=== PATIENT | female | born 1990 | race African-American/Black ===

== ENCOUNTER 2017-01-04 12:29 | Inpatient (IN) | payer BC ==
[~2017-01-04] VITALS: Ht 157.5 cm; Wt 92.5 kg
--- NOTE | ~2017-01-04 | EKG ---
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 : 1990 Requested By: Lenny Bianchi Order Number: [id number] MD: Salazar Tanner Measurements Intervals [place] Rate: 70 P: 36 [place]: 175 QRS: 7 QRSD: 99 T: -2 QT: 410 QTc: 443 Interpretive Statements Sinus rhythm Probable left ventricular hypertrophy Compared to ECG 08/16/2015 19:33:27 Prolonged QT interval no longer present Electronically Signed On 01-06-2017 13:14:13 CDT by Salazar Tanner [email or web address] <ELECTRONICALLY SIGNED> By: Salazar Tanner MD, [facility] 01/06/17 1314 1308 1308 Salazar Tanner MD, [facility] /EPI
[~2017-01-04 12:29] MED LIST: ALDOMET250 MG PO; AMLODIPINE BESY10 MG PO; COLACE 100 MG100 MG PO; FLAGYL500 MG PO; HYDRALAZINE 2525 MG PO; HYDROCODONE-AP1 EAC6 PO; IBUPROFEN 600600 M1 PO; K-DUR 20 MEQ T20 MEQ PO; KEFLEX500 MG PO; KLOR-CON 1010 MEQ PO; LISINOPRIL20 MG PO; MACROBID 100 M100 M1 PO; NOHOMEMEDICATIONS; NORCO 5-325 TA1 EACH PO; PENICILLIN VK500 M1 PO; PHENERGAN 25 MG25 M1 PO; PHENERGAN12.5 M2 RECTAL; POTASSIUM20 PO; PROMS25 WY RECTAL; PYRIDOXINE HCL25 MG PO; SLOW-MAG64 MG PO; TESSALON PERLE100 MG PO; TRANDATE 200 M200 M1 PO; TRANDATE 200 M200 MG PO; TRINATE TABLET1 TAB PO; ULTRA SLEEP25 MG PO; VALIUM5 MG PO; ZOFRAN ODT4 MG PO
[2017-01-04 12:30] VITALS: BP 209/138
[2017-01-04] MEDS ORDERED: PROCARDIA XL30 MG PO (12:54)
[2017-01-04 13:13] LABS: BASOPHILS 0.7 % (0.0-2.0); EOSINOPHILS 1.3 % (0.0-3.0); HEMATOCRIT 38.5 % (37.0-47.0); HEMOGLOBIN 12.6 gm/dL (12.0-15.0); LYMPHOCYTES 23.1 % (24.0-44.0); MCH 26.3 pg (26.0-34.0); MCHC 32.6 g/dL (28.0-37.0); MCV 80.7 fL (80.0-100.0); MONOCYTES 7.2 % (1.0-8.0); PLATELET COUNT 284 thou/uL (150-400); POLYS 67.7 % (36.0-66.0); RBC 4.78 mil/uL (4.20-5.00); WBC 7.4 thou/uL (4.0-11.0)
[2017-01-04 13:20] LABS: MANUAL DIFF NO
[2017-01-04 13:42] LABS: ANION GAP 7 mmol/L (7-16); BUN 17 mg/dL (7-18); CALCIUM 8.8 mg/dL (8.5-10.1); CHLORIDE 101 mmol/L (98-107); CO2 33 mmol/L (21-32); CREATININE 0.8 mg/dL (0.6-1.0); GLUCOSE 109 mg/dL (74-106); SODIUM 141 mmol/L (136-145); TROPONIN-I < 0.04 ng/mL (<0.04-0.07)
[2017-01-04 13:44] LABS: POTASSIUM 2.1 mmol/L (3.5-5.1)
[2017-01-04 16:08] VITALS: BP 154/68
[2017-01-04 20:00] VITALS: BP 163/61; BP 163/91
[2017-01-05 04:00] VITALS: BP 170/103
[2017-01-05 05:22] LABS: CALCIUM 8.3 mg/dL (8.5-10.1); CREATININE 0.8 mg/dL (0.6-1.0); MAGNESIUM 1.8 mg/dL (1.8-2.4)
[2017-01-05 05:24] LABS: HEMATOCRIT 35.7 % (37.0-47.0); HEMOGLOBIN 11.8 gm/dL (12.0-15.0); MCH 26.9 pg (26.0-34.0); MCHC 33.2 g/dL (28.0-37.0); MCV 81.3 fL (80.0-100.0); RBC 4.4 mil/uL (4.20-5.00); RDW 16.3 % (10.5-14.5); WBC 10.4 thou/uL (4.0-11.0)
[2017-01-05 05:25] LABS: POTASSIUM 2.2 mmol/L (3.5-5.1)
[2017-01-05 08:28] VITALS: BP 171/101
[2017-01-05 16:00] VITALS: BP 138/85
[2017-01-05 20:00] VITALS: BP 157/99
[2017-01-06 04:53] LABS: CALCIUM 8.2 mg/dL (8.5-10.1); CREATININE 0.8 mg/dL (0.6-1.0)
[2017-01-06 05:00] VITALS: BP 166/102
[2017-01-06 05:11] LABS: POTASSIUM 2.6 mmol/L (3.5-5.1)
[2017-01-06 08:00] VITALS: BP 156/110
[2017-01-06 11:30] LABS: URINE BILIRUBIN NEGATIVE (Negative); URINE BLOOD 3+ (Negative); URINE GLUCOSE-RANDOM* NEGATIVE (Negative); URINE KETONES NEGATIVE (Negative); URINE NITRITE NEGATIVE (Negative); URINE PROTEIN (DIPSTICK) NEGATIVE (Negative); URINE SPECIFIC GRAVITY 1.015 (1.003-1.035); URINE UROBILINOGEN 0.2 E.U./dl (0.2-1.0)
[2017-01-06 11:33] LABS: URINE COLOR PINK
[2017-01-06 11:37] LABS: BACTERIA 1-9 Few /HPF (None Seen); CASTS None Seen /LPF (None Seen); CRYSTALS None Seen /LPF (None Seen); SQUAMOUS 0-3 Few /LPF (0-3); URINE RBC >20 Many /HPF (0-2); URINE WBC 0-5 Rare /HPF (0-5)
[2017-01-06 16:00] VITALS: BP 140/82
[2017-01-06 19:10] VITALS: BP 173/103
[2017-01-07 00:48] LABS: ALBUMIN 2.9 g/dL (3.4-5.0); CALCIUM 8.4 mg/dL (8.5-10.1); CREATININE 1.1 mg/dL (0.6-1.0); PHOSPHORUS 3.7 mg/dL (2.5-4.9); POTASSIUM 3.2 mmol/L (3.5-5.1)
[2017-01-07 02:03] VITALS: BP 161/103
[2017-01-07 05:14] VITALS: BP 152/94
[2017-01-07 08:48] VITALS: BP 154/104
[2017-01-07 16:00] VITALS: BP 149/97
[2017-01-07 19:18] VITALS: BP 142/91
[2017-01-08 07:16] LABS: HEMATOCRIT 36.1 % (37.0-47.0); HEMOGLOBIN 11.9 gm/dL (12.0-15.0); MCV 81.7 fL (80.0-100.0); RBC 4.42 mil/uL (4.20-5.00); RDW 16.4 % (10.5-14.5); WBC 8.5 thou/uL (4.0-11.0)
[2017-01-08 08:26] VITALS: BP 172/108
[2017-01-08 08:35] LABS: CALCIUM 8.7 mg/dL (8.5-10.1); CREATININE 0.8 mg/dL (0.6-1.0); PHOSPHORUS 3.9 mg/dL (2.5-4.9); POTASSIUM 3.3 mmol/L (3.5-5.1)
[2017-01-08] MEDS ORDERED: LISINOPRIL20 MG PO (10:24)
[2017-01-08] MEDS ORDERED: ALDACTONE25 MG PO (10:25)
[2017-01-08 10:40] VITALS: BP 172/108
[2017-01-08 11:00] VITALS: BP 166/97
== END 2017-01-08 11:47 | disposition home or self-care (01) | DRG 641 ==
LOC: ER 12:29 → EROBS 15:34 → 4S 15:34
PROVIDERS: Hospitalist; Physician Assistant
DX: E87.6 Hypokalemia (principal); I16.9 Hypertensive crisis, unspecified; E26.9 Hyperaldosteronism, unspecified; E87.3 Alkalosis; R51 Headache; Z79.899 Other long term (current) drug therapy; Z82.49 Family history of ischemic heart disease and other diseases of the circulatory system; Z87.81 Personal history of (healed) traumatic fracture
CPT/HCPCS: 10100

== ENCOUNTER 2017-09-29 00:42 | Emergency (ER) | payer BC ==
[~2017-09-29] VITALS: Ht 157.5 cm; Wt 147.4 kg
--- NOTE | ~2017-09-29 | EKG ---
[address] [address] ELECTROCARDIOGRAM REPORT Name: LUIS SINGLETON [facility] Room #: [facility]#: [id number] Admission: 09/29/17 Attend Phys: Discharge: 09/29/17 Date of : [birth year] Report #: [id number] THIS REPORT FOR: //name// 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
[~2017-09-29 00:42] MED LIST changes: +ALDACTONE25 MG PO; +PROCARDIA XL30 MG PO
[2017-09-29 01:16] LABS: ABSOLUTE NEUTROPHILS 5.3 thou/uL (1.4-8.2); BASOPHILS 0.5 % (0.0-2.0); EOSINOPHILS 1.1 % (0.0-3.0); HEMATOCRIT 36.7 % (37.0-47.0); HEMOGLOBIN 12.4 gm/dL (12.0-15.0); MCH 27.4 pg (26.0-34.0); MCHC 33.7 g/dL (28.0-37.0); MCV 81.1 fL (80.0-100.0); MONOCYTES 8.5 % (1.0-8.0); PLATELET COUNT 243 thou/uL (150-400); POLYS 64.9 % (36.0-66.0); RBC 4.53 mil/uL (4.20-5.00); RDW 15.5 % (10.5-14.5); WBC 8.2 thou/uL (4.0-11.0)
[2017-09-29 01:26] LABS: ANION GAP 7 mmol/L (7-16); BUN 18 mg/dL (7-18); CALCIUM 9.1 mg/dL (8.5-10.1); CHLORIDE 102 mmol/L (98-107); CO2 30 mmol/L (21-32); CREATININE 0.9 mg/dL (0.6-1.0); GLUCOSE 108 mg/dL (74-106); SODIUM 139 mmol/L (136-145)
[2017-09-29 01:29] LABS: POTASSIUM 2.1 mmol/L (3.5-5.1)
[2017-09-29 01:34] LABS: MAGNESIUM 1.7 mg/dL (1.8-2.4); SGOT 24 U/L (15-37); SGPT 30 U/L (30-65); TOTAL BILIRUBIN 0.5 mg/dL (<0.1-1.0); TOTAL PROTEIN 7.6 g/dL (6.4-8.2); TROPONIN-I < 0.04 ng/mL (<0.06)
[2017-09-29] MEDS ORDERED: LISINOPRIL20 MG PO (03:00)
[2017-09-29] MEDS ORDERED: PROCARDIA XL30 MG PO (03:00)
[2017-09-29] MEDS ORDERED: ALDACTONE50 MG PO (03:00)
[2017-09-29] MEDS ORDERED: POTASSIUM20 PO (03:06)
== END 2017-09-29 04:06 | disposition home or self-care (01) ==
LOC: ER 00:42
PROVIDERS: Emergency Medicine
DX: R51 Headache (principal); E87.6 Hypokalemia; I10 Essential (primary) hypertension; E83.42 Hypomagnesemia; Z91.14 Patient's other noncompliance with medication regimen

== ENCOUNTER → 2017-10-21 | Outpatient (CLI) | payer BC ==
[~2017-10-21] MED LIST changes: +ALDACTONE50 MG PO
== END ==
LOC: RAD 12:28
DX: M79.605 Pain in left leg (principal)

== ENCOUNTER 2018-05-02 01:33 | Emergency (ER) | payer BC ==
[~2018-05-02] VITALS: Ht 157.5 cm; Wt 111.6 kg
[2018-05-02] MEDS ORDERED: LABETALOL HCL100 MG PO (01:45)
[2018-05-02] MEDS ORDERED: MOBIC15 MG PO (04:31)
[2018-05-02 04:42] VITALS: BP 156/105
== END 2018-05-02 04:44 | disposition home or self-care (01) ==
LOC: ER 01:33
DX: S80.12XA Contusion of left lower leg, initial encounter (principal); S09.90XA Unspecified injury of head, initial encounter; I10 Essential (primary) hypertension; Y04.0XXA Assault by unarmed brawl or fight, initial encounter; Y92.89 Other specified places as the place of occurrence of the external cause; Y93.89 Activity, other specified; Y99.8 Other external cause status

== ENCOUNTER 2018-10-28 04:52 | Emergency (ER) | payer BC ==
[~2018-10-28] VITALS: Ht 157.5 cm; Wt 108.9 kg
[~2018-10-28 04:52] MED LIST changes: +LABETALOL HCL100 MG PO; +MOBIC15 MG PO
[2018-10-28] MEDS ORDERED: TYLENOL EXTRA500 MG PO (05:08)
[2018-10-28] MEDS ORDERED: LISINOPRIL40 MG PO (05:12)
[2018-10-28 05:50] VITALS: BP 188/97
[2018-10-28] MEDS ORDERED: ULTRAM 50MG TAB50 MG PO ×2 (05:53)
[2018-10-28] MEDS ORDERED: NAPROSYN500 M1 PO (05:53)
== END 2018-10-28 05:50 | disposition home or self-care (01) ==
LOC: ER 04:52
DX: G89.29 Other chronic pain (principal); M79.672 Pain in left foot; I10 Essential (primary) hypertension

== ENCOUNTER 2020-08-16 05:45 | Emergency (ER) | payer OTHER ==
[~2020-08-16] VITALS: Ht 157.5 cm; Wt 120.2 kg
[~2020-08-16 05:45] MED LIST changes: +CARVEDILOL25 MG PO; +HYDRALAZINE 5050 MG PO; +LISINOPRIL40 MG PO; +NAPROSYN500 M1 PO; +NEURONTIN100 MG PO; +NIFEDIPINE ER30 M1 PO; +SPIRONOLACTONE25 M1 PO; +TYLENOL EXTRA500 MG PO; +ULTRAM 50MG TAB50 MG PO; +VITAMIN D PO
[2020-08-16] MEDS ORDERED: ZESTRIL10 MG PO (05:56)
[2020-08-16 06:23] LABS: ABSOLUTE NEUTROPHILS 8.6 thou/uL (1.4-8.2); BASOPHILS 0.7 % (0.0-2.0); EOSINOPHILS 0.8 % (0.0-3.0); HEMATOCRIT 35.6 % (37.0-47.0); HEMOGLOBIN 11.8 gm/dL (12.0-15.0); LYMPHOCYTES 17.8 % (24.0-44.0); MCH 28.8 pg (26.0-34.0); MCV 87.1 fL (80.0-100.0); MONOCYTES 8.2 % (1.0-8.0); PLATELET COUNT 363 thou/uL (150-400); POLYS 72.5 % (36.0-66.0); RBC 4.09 mil/uL (4.20-5.00); RDW 14.6 % (10.5-14.5); WBC 11.9 thou/uL (4.0-11.0)
[2020-08-16 06:31] LABS: ANION GAP 9 mmol/L (7-16); BUN 33 mg/dL (7-18); CHLORIDE 103 mmol/L (98-107); CO2 21 mmol/L (21-32); CREATININE 1.7 mg/dL (0.6-1.0); GLUCOSE 125 mg/dL (74-106); POTASSIUM 5.2 mmol/L (3.5-5.1); SODIUM 133 mmol/L (136-145)
[2020-08-16 06:41] LABS: ALBUMIN 3.5 g/dL (3.4-5.0); SGOT 17 U/L (15-37); SGPT 18 U/L (14-59); TOTAL BILIRUBIN 0.4 mg/dL (0.2-1.0); TOTAL PROTEIN 8.2 g/dL (6.4-8.2); TROPONIN-I <0.06 ng/mL (<0.06)
--- NOTE | 2020-08-16 06:48 | EKG ---
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 : 1990 Requested By: Nitesh Martins Order Number: [id number] MD: Tone Alarcon Measurements Intervals [place] Rate: 90 P: 45 [place]: 157 QRS: 6 QRSD: 84 T: 20 QT: 341 QTc: 418 Interpretive Statements Sinus rhythm Borderline T wave abnormalities Compared to ECG 01/11/2020 10:44:05 No significant changes Electronically Signed On 08-16-2020 6:48:44 IMMIGRATION ATTORNEY by Tone Alarcon [email or web address] <ELECTRONICALLY SIGNED> By: Tone Alarcon MD, [facility] 08/16/20 [id number] [id number] Tone Alarcon MD, FACShefali /EPI
[2020-08-16 08:54] VITALS: BP 144/93
== END 2020-08-16 08:55 | disposition home or self-care (01) ==
LOC: ER 05:45
PROVIDERS: Emergency Medicine
DX: K80.80 Other cholelithiasis without obstruction (principal); I10 Essential (primary) hypertension; Z79.899 Other long term (current) drug therapy

== ENCOUNTER 2021-06-18 19:16 | Emergency (ER) | payer BC ==
[~2021-06-18 19:16] MED LIST changes: +ZESTRIL10 MG PO
[2021-06-18 20:11] LABS: ABSOLUTE NEUTROPHILS 7.2 thou/uL (1.4-8.2); BASOPHILS 0.4 % (0.0-2.0); EOSINOPHILS 1.2 % (0.0-3.0); HEMATOCRIT 36.6 % (37.0-47.0); HEMOGLOBIN 12.4 gm/dL (12.0-15.0); LYMPHOCYTES 22.8 % (24.0-44.0); MCH 28.4 pg (26.0-34.0); MCHC 33.8 g/dL (28.0-37.0); MCV 84.1 fL (80.0-100.0); MONOCYTES 8.3 % (1.0-8.0); PLATELET COUNT 292 thou/uL (150-400); POLYS 67.3 % (36.0-66.0); RBC 4.35 mil/uL (4.20-5.00); RDW 14.9 % (10.5-14.5); WBC 10.6 thou/uL (4.0-11.0)
[2021-06-18 21:40] LABS: CALCIUM 8.5 mg/dL (8.5-10.1); CREATININE 1.5 mg/dL (0.6-1.0); POTASSIUM 4.3 mmol/L (3.5-5.1)
[2021-06-18 21:50] LABS: ALBUMIN 3.3 g/dL (3.4-5.0); TOTAL BILIRUBIN 0.4 mg/dL (0.2-1.0); TOTAL PROTEIN 7.4 g/dL (6.4-8.2)
[2021-06-18 22:31] LABS: URINE BILIRUBIN NEGATIVE (Negative); URINE BLOOD NEGATIVE (Negative); URINE CLARITY CLEAR; URINE COLOR YELLOW; URINE GLUCOSE-RANDOM* NEGATIVE (Negative); URINE KETONES NEGATIVE (Negative); URINE LEUKOCYTES-REFLEX NEGATIVE (Negative); URINE NITRITE-REFLEX NEGATIVE (Negative); URINE PROTEIN (DIPSTICK) NEGATIVE (Negative); URINE UROBILINOGEN 0.2 E.U./dl (0.2-1.0)
[2021-06-18 23:35] VITALS: BP 118/85
--- NOTE | 2021-06-19 12:52 | EKG ---
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 : 1990 Requested By: Cody Law Order Number: [id number] MD: Tone Alarcon Measurements Intervals [place] Rate: 109 P: 43 [place]: 157 QRS: 23 QRSD: 90 T: 4 QT: 324 QTc: 437 Interpretive Statements Sinus tachycardia Compared to ECG 08/16/2020 05:52:22 Sinus rhythm no longer present T-wave abnormality no longer present Electronically Signed On 06-19-2021 12:51:52 MANAGER HEART FAILURE by Tone Alarcon [email or web address] <ELECTRONICALLY SIGNED> By: Tone Alarcon MD, [facility] 06/19/21 1251 [id number] 24 Tone Alarcon MD, FACC /EPI
== END 2021-06-18 23:36 | disposition home or self-care (01) ==
LOC: ER 19:16
PROVIDERS: Emergency Medicine
DX: R07.89 Other chest pain (principal); Z20.822 Contact with and (suspected) exposure to COVID-19; M25.512 Pain in left shoulder; I10 Essential (primary) hypertension; Z98.890 Other specified postprocedural states; Z79.899 Other long term (current) drug therapy; Z79.891 Long term (current) use of opiate analgesic

== ENCOUNTER 2021-07-07 16:41 | Emergency (ER) | payer BC ==
[~2021-07-07] VITALS: Ht 157.5 cm; Wt 124.7 kg
[2021-07-07 17:33] LABS: URINE BILIRUBIN NEGATIVE (Negative); URINE BLOOD 3+ (Negative); URINE CLARITY CLEAR; URINE COLOR YELLOW; URINE GLUCOSE-RANDOM* NEGATIVE (Negative); URINE KETONES NEGATIVE (Negative); URINE LEUKOCYTES-REFLEX NEGATIVE (Negative); URINE NITRITE-REFLEX NEGATIVE (Negative); URINE PROTEIN (DIPSTICK) NEGATIVE (Negative); URINE UROBILINOGEN 0.2 E.U./dl (0.2-1.0)
[2021-07-07 17:40] LABS: HEMATOCRIT 35.5 % (37.0-47.0); HEMOGLOBIN 11.7 gm/dL (12.0-15.0); MCH 28.2 pg (26.0-34.0); MCV 85.5 fL (80.0-100.0); RBC 4.15 mil/uL (4.20-5.00); RDW 15.4 % (10.5-14.5); WBC 8.7 thou/uL (4.0-11.0)
[2021-07-07 17:52] LABS: CALCIUM 8.6 mg/dL (8.5-10.1); CREATININE 1.4 mg/dL (0.6-1.0); POTASSIUM 3.9 mmol/L (3.5-5.1)
[2021-07-07 18:02] LABS: BACTERIA-REFLEX 1-9 Few /HPF (None Seen); CASTS None Seen /LPF (None Seen); CRYSTALS None Seen /LPF (None Seen); MUCUS 4-6 Moderate strn/LPF (None Seen); SQUAMOUS 0-3 Few /LPF (0-3); URINE RBC 1-2 Rare /HPF (NONE SEEN); URINE WBC-REFLEX 0-5 Rare /HPF (0-5)
[2021-07-07] MEDS ORDERED: LABETALOL HCL100 MG PO (19:35)
[2021-07-07 19:43] VITALS: BP 159/100
== END 2021-07-07 19:43 | disposition home or self-care (01) ==
LOC: ER 16:41
PROVIDERS: Emergency Medicine; Nurse Practitioner Family
DX: O20.0 Threatened abortion (principal); I10 Essential (primary) hypertension; Z3A.01 Less than 8 weeks gestation of pregnancy; Z98.890 Other specified postprocedural states; Z79.891 Long term (current) use of opiate analgesic; Z79.899 Other long term (current) drug therapy